=== PATIENT | male | born 1960 | race Caucasian/White ===

== ENCOUNTER 2017-10-17 13:50 | Observation (INO) | payer BC ==
[2017-10-17 16:57] LABS: Urine Blood 2+ (NEG); Urine Glucose NEGATIVE (NEG); Urine Protein 1+ (NEG); Urine pH 5.5 (5.0-7.0)
[2017-10-17 17:07] LABS: Urine Bacteria <20 /HPF (NONE SEEN); Urine RBC <5 /HPF (NONE SEEN)
[2017-10-17 17:08] LABS: Urine Culture Reflex Order NOT NEEDED
[2017-10-17] MEDS ORDERED: MORPHINE 4 MG/ML SYR ONE (17:18)
[2017-10-17] MEDS ORDERED: ONDANSETRON 4 MG/2 ML VIAL ONE (17:18)
[2017-10-17 17:29] LABS: Absolute Lymphocytes (CBC) 2.4 K/uL (0.7-4.9); Absolute Monocytes 1.2 K/uL (0.1-1.3); Absolute Neutrophil 12.9 K/uL (1.8-8.0); Basophils % 0.8 % (0-1.3); Eosinophils % 0.3 % (0-4.4); Hematocrit 44.9 % (39.6-49.0); Lymphocytes % 14.2 % (15.3-44.8); MCH 29.8 pg (27.0-35.0); MCV 87.6 fL (80-100); MPV 8.8 fL (7.6-11.3); Monocytes % 7.4 % (3.3-12.3); RBC Red Blood Cell Count 5.12 M/uL (4.33-5.43)
[2017-10-17 17:39] LABS: Albumin 3.9 g/dL (3.4-5.0); Bilirubin Direct 0.1 mg/dL (0-0.2); Bilirubin Total 0.9 mg/dL (0.2-1.0); Potassium 4.2 mmol/L (3.5-5.1); Protein, Total 8.1 g/dL (6.4-8.2)
--- NOTE | 2017-10-17 18:17 | RAD REPORT ---
EXAM DESCRIPTION: CT - Abdomen Pelvis W Contrast - 10/17/2017 6:05 pm CLINICAL HISTORY: Abdominal pain. Left lower quadrant pain with nausea for 3 days COMPARISON: None. TECHNIQUE: Computed axial tomography of the abdomen and pelvis was obtained. 100 cc Isovue-300 is ad ministered intravenously. Oral contrast was given. All CT scans are performed using dose optimization technique as appropriate and may include automated exposure control or mA/KV adjustment according to patient size. FINDINGS: A 24 millimeter low to intermediate density lesion is present within the left lobe of the liver. A sm aller low to intermediate density lesion is seen within the right lobe. Spleen, pancreas, adrenals and kidneys appear unremarkable. The appendix is thickened with ill-defined christopher appendiceal fluid . Free air is not seen. A discrete abscess is not noted. Small right inguinal hernia contains fat. Postsurgical changes of a left inguinal hernia repair are n oted IMPRESSION: Suppurative appendicitis Hepatic lesions are nonspecific. They do not represent simple cysts. Follow up ultrasound in 3 months is recommended
[2017-10-17] MEDS ORDERED: PIPER/TAZO/NS 3.375gm 3.375 GM/100 ML BAG ONE (18:31)
--- NOTE | 2017-10-17 18:31 | ER ---
Nurse's Notes [facility] Unit Name: Corky Musa Age: 57 yrs Sex: Male : 1960 Arrival Date: 10/17/2017 Time: 13:53 Bed 20 Private MD: None, None Diagnosis: Acute appendicitis Presentation: 10/17 14:10 Presenting complaint: Patient states: LLQ pain and tenderness and nausea x 3 days, hb periumbilical pain since yesterday. Transition of care: patient was not received from another setting of care. Onset of symptoms was October 15, 2017. Risk Assessment: Do you want to hurt yourself or someone else? Patient reports no desire to harm self or others. Initial Sepsis Screen: Does the patient meet any 2 criteria? No. Patient's initial sepsis screen is negative. Does the patient have a suspected source of infection? No. Patient's initial sepsis screen is negative. Care prior to arrival: None. 14:10 Method Of Arrival: Ambulatory hb 14:10 Acuity: NICKY 3 hb Triage Assessment: 16:29 General: Appears in no apparent distress. uncomfortable, Behavior is calm, cooperative, hj appropriate for age. Pain: Complains of pain in abdomen. GI: Reports lower abdominal pain, upper abdominal pain. Historical: - Allergies: 14:16 No Known Allergies; hb - Home Meds: 14:16 None [Active]; hb - PMHx: 14:16 None; hb - PSHx: 14:16 Hernia repair; hb - Immunization history:: Adult Immunizations up to date. - Social history:: Smoking status: Patient/guardian denies using tobacco. - Ebola Screening: : No symptoms or risks identified at this time. Screenin:29 Abuse screen: Denies threats or abuse. Denies injuries from another. Nutritional hj screening: No deficits noted. Tuberculosis screening: No symptoms or risk factors identified. Fall Risk None identified. Assessment: 16:29 GI: Bowel sounds present X 4 quads. Abd is soft and non tender Abd is soft. hj 16:55 Reassessment: awaiting provider;. hj 17:00 Reassessment: provider in room;. hj 17:30 Reassessment: Patient and/or family updated on plan of care and expected duration. Pain hj level reassessed. Patient is alert, oriented x 3, equal unlabored respirations, skin warm/dry/pink. awaiting CT:. 18:00 Reassessment: wheeled to CT:. hj 18:57 Reassessment: Patient and/or family updated on plan of care and expected duration. Pain hj level reassessed. Patient is alert, oriented x 3, equal unlabored respirations, skin warm/dry/pink. for surgery, consent signed, EKG done;. 19:09 Reassessment: Patient appears in no apparent distress at this time. No changes from jd3 previously documented assessment. Patient and/or family updated on plan of care and expected duration. Pain level reassessed. Patient is alert, oriented x 3, equal unlabored respirations, skin warm/dry/pink. 19:13 Reassessment: report given to OR nurse using SBAR method. pt reporting understanding on jd3 need for admission. Vital Signs: 14:14 BP 145 / 95; Pulse 63; Resp 15; Temp 99.8(TE); Pulse Ox 100% on R/A; Weight 80.29 kg; hb Height 5 ft. 11 in. (180.34 cm); Pain 8/10; 16:58 BP 127 / 80; Pulse 65; Resp 18; Pulse Ox 100% on R/A; hj 17:30 BP 130 / 85; Pulse 69; Resp 18; Pulse Ox 100% on R/A; hj 18:57 BP 133 / 85; Pulse 70; Resp 18; Pulse Ox 100% on R/A; hj 19:08 BP 121 / 75; Pulse 69; Resp 16 S; Pulse Ox 99% on R/A; jd3 14:14 Body Mass Index 24.69 (80.29 kg, 180.34 cm) ED Course: 13:53 Patient arrived in ED. sb2 13:53 None, None is Private Physician. sb2 14:14 Triage completed. hb 14:14 Arm band placed on right wrist. hb 16:22 Radiology exam delayed due to lab results not completed at this time. (BUN/Creatinine) vm2 IV insertion attempt and/or patient not having appropriate IV at this time. 16:29 Samuel Cummings, CHRIS is Primary Nurse. hj 16:29 Kenyon Chahal PA is PHCP. jr8 16:29 Gamaliel Hawkins MD is Attending Physician. jr8 16:30 Patient has correct armband on for positive identification. Placed in gown. Bed in low hj position. Call light in reach. Side rails up X 1. 17:13 Initial lab(s) drawn, by me, sent to lab. Inserted saline lock: 22 gauge in right hj antecubital area, using aseptic technique. Blood collected. 17:[address] 2 18:05 CT Abd/Pelvis - W/Contrast In Process Unspecified. EDMS 18:30 Samuel Steinberg MD is Hospitalizing Provider. jr8 18:35 X-ray completed. Portable x-ray completed in exam room. Patient tolerated procedure sw well. 18:36 XRAY Chest (1 view) In Process Unspecified. EDMS 18:48 EKG done, by ED staff, reviewed by Kenyon LOPEZ. 5 18:58 Pulse ox on. NIBP on. mh5 19:08 No provider procedures requiring assistance completed. Patient admitted, IV remains in jd3 place. Administered Medications: 17:16 Not Given (Patient Refused): Zofran 4 mg IVP once; over 2 minutes hj 17:16 Not Given (Patient Refused): morphine 4 mg IVP once hj 18:25 Drug: Zosyn 3.375 grams Route: IVPB; Infused Over: 60 mins; Site: right antecubital; 18:36 Follow up: IV Status: Completed infusion ss Outcome: 18:30 Decision to Hospitalize by Provider. jr8 19:14 Admitted to OR accompanied by nurse, via wheelchair, room OR, with chart. jd3 19:14 Condition: stable 19:14 Instructed on the need for admit, Demonstrated understanding of instructions. 19:15 Patient left the ED. jd3 Signatures: Dispatcher [employer] EDND Barbara Hoff, RN Kenyon Curiel PA PA jr8 Day Doran Samuel Cummings RN RN Miladis Tidwell RN RN hb Martinez, [facility] Malika Bowers 2 Luisito Asif RN RN jd3 Billeau, Sheri 2
--- NOTE | 2017-10-17 18:31 | EDPHYS ---
Physician Documentation [facility] Name: Corky Musa Age: 57 yrs Sex: Male : 1960 Arrival Date: 10/17/2017 Time: 13:53 Bed 20 Private MD: None, None ED Physician Gamaliel Hawkins HPI: 10/17 17:21 This 57 yrs old Male presents to ER via Ambulatory with complaints of jr8 Abdominal Pain. 17:21 The patient presents with abdominal pain in the lower abdomen. Onset: The jr8 symptoms/episode began/occurred acutely, yesterday. The symptoms do not radiate. Associated signs and symptoms: Pertinent positives: nausea. The symptoms are described as sharp. Modifying factors: The symptoms are alleviated by nothing, the symptoms are aggravated by nothing. Severity of pain: At its worst the pain was moderate in the emergency department the pain is unchanged. The patient has not experienced similar symptoms in the past. The patient has not recently seen a physician. Historical: - Allergies: 14:16 No Known Allergies; hb - Home Meds: 14:16 None [Active]; hb - PMHx: 14:16 None; hb - PSHx: 14:16 Hernia repair; hb - Immunization history:: Adult Immunizations up to date. - Social history:: Smoking status: Patient/guardian denies using tobacco. - Ebola Screening: : No symptoms or risks identified at this time. ROS: 17:21 Eyes: Negative for injury, pain, redness, and discharge, ENT: Negative for injury, jr8 pain, and discharge, Neck: Negative for injury, pain, and swelling, Cardiovascular: Negative for chest pain, palpitations, and edema, Respiratory: Negative for shortness of breath, cough, wheezing, and pleuritic chest pain, Back: Negative for injury and pain, MS/Extremity: Negative for injury and deformity, Skin: Negative for injury, rash, and discoloration, Neuro: Negative for headache, weakness, numbness, tingling, and seizure. 17:21 Abdomen/GI: Positive for abdominal pain, nausea, Negative for diarrhea, constipation, abdominal cramps, abdominal distension, anorexia, dysphagia, hematemesis, black/tarry stool, rectal pain, rectal bleeding, bowel incontinence, flatulence. Exam: 17:21 Eyes: Pupils equal round and reactive to light, extra-ocular motions intact. Lids and jr8 lashes normal. Conjunctiva and sclera are non-icteric and not injected. Cornea within normal limits. Periorbital areas with no swelling, redness, or edema. ENT: Nares patent. No nasal discharge, no septal abnormalities noted. Tympanic membranes are normal and external auditory canals are clear. Oropharynx with no redness, swelling, or masses, exudates, or evidence of obstruction, uvula midline. Mucous membranes moist. Neck: Trachea midline, no thyromegaly or masses palpated, and no cervical lymphadenopathy. Supple, full range of motion without nuchal rigidity, or vertebral point tenderness. No Meningismus. Cardiovascular: Regular rate and rhythm with a normal S1 and S2. No gallops, murmurs, or rubs. Normal PMI, no JVD. No pulse deficits. Respiratory: Lungs have equal breath sounds bilaterally, clear to auscultation and percussion. No rales, rhonchi or wheezes noted. No increased work of breathing, no retractions or nasal flaring. Back: No spinal tenderness. No costovertebral tenderness. Full range of motion. Skin: Warm, dry with normal turgor. Normal color with no rashes, no lesions, and no evidence of cellulitis. MS/ Extremity: Pulses equal, no cyanosis. Neurovascular intact. Full, normal range of motion. Neuro: Awake and alert, GCS 15, oriented to person, place, time, and situation. Cranial nerves II-XII grossly intact. Motor strength 5/5 in all extremities. Sensory grossly intact. Cerebellar exam normal. Normal gait. 17:21 Abdomen/GI: Inspection: abdomen appears normal, Bowel sounds: active, all quadrants, Palpation: soft, in all quadrants, mild abdominal tenderness, in the right lower quadrant and left lower quadrant, mass, is not appreciated, rebound tenderness, is not appreciated, voluntary guarding, is not appreciated, involuntary guarding, is not appreciated, no appreciated organomegaly, Indicators: McBurney's point is not tender, Jimenez's sign is negative, Rovsing's sign is negative, Liver: no appreciated palpable abnormalities, tenderness, is not appreciated. Vital Signs: 14:14 BP 145 / 95; Pulse 63; Resp 15; Temp 99.8(TE); Pulse Ox 100% on R/A; Weight 80.29 kg; hb Height 5 ft. 11 in. (180.34 cm); Pain 8/10; 16:58 BP 127 / 80; Pulse 65; Resp 18; Pulse Ox 100% on R/A; hj 17:30 BP 130 / 85; Pulse 69; Resp 18; Pulse Ox 100% on R/A; hj 18:57 BP 133 / 85; Pulse 70; Resp 18; Pulse Ox 100% on R/A; hj 19:08 BP 121 / 75; Pulse 69; Resp 16 S; Pulse Ox 99% on R/A; jd3 14:14 Body Mass Index 24.69 (80.29 kg, 180.34 cm) hb MDM: 16:29 Patient medically screened. jr8 18:29 Data reviewed: vital signs, nurses notes, lab test result(s), radiologic studies, CT jr8 scan, and as a result, I will admit patient. Data interpreted: Pulse oximetry: on room air is 100 %. Interpretation: normal. Counseling: I had a detailed discussion with the patient and/or guardian regarding: the historical points, exam findings, and any diagnostic results supporting the discharge/admit diagnosis, lab results, radiology results, the need for further work-up and treatment in the hospital. Physician consultation: Samuel Steinberg MD was called at 18:29, was contacted at 18:29, regarding admission, to the operating room, consult, patient's condition, and will see patient. 10/17 14:50 Order name: Urine Microscopic Only; Complete Time: 17:15 pending sale to [facility] 10/17 16:40 Order name: Urine Dipstick--Ancillary (enter results); Complete Time: 17:01 10/17 17:02 Order name: Basic Metabolic Panel; Complete Time: 17:42 [facility] 10/17 17:02 Order name: CBC with Diff; Complete Time: 17:33 [facility] 10/17 17:02 Order name: Creatinine for Radiology; Complete Time: 17:36 [facility] 10/17 17:02 Order name: Hepatic Function; Complete Time: 17:42 [facility] 10/17 14:50 Order name: Urine Dipstick-Ancillary (obtain specimen); Complete Time: 16:39 pending sale to [facility] 10/17 14:50 Order name: CT Abd/Pelvis - W/Contrast; Complete Time: 18:22 pending sale to [facility] 10/17 17:02 Order name: Lipase; Complete Time: 17:42 10/17 18:23 Order name: EKG; Complete Time: 18:23 10/17 18:24 Order name: XRAY Chest (1 view); Complete Time: 19:13 10/17 14:50 Order name: NPO; Complete Time: 16:31 snw 10/17 17:02 Order name: IV Saline Lock; Complete Time: 17:13 10/17 17:02 Order name: Labs collected and sent; Complete Time: 17:13 10/17 18:23 Order name: EKG - Nurse/Tech; Complete Time: 18:36 10/17 18:23 Order name: NPO; Complete Time: 18:25 Administered Medications: 17:16 Not Given (Patient Refused): Zofran 4 mg IVP once; over 2 minutes hj 17:16 Not Given (Patient Refused): morphine 4 mg IVP once hj 18:25 Drug: Zosyn 3.375 grams Route: IVPB; Infused Over: 60 mins; Site: right antecubital; ss 18:36 Follow up: IV Status: Completed infusion ss Disposition: 10/18 09:37 Co-signature as Attending Physician, Gamaliel Hawkins MD I agree with the assessment and milka plan of care. Disposition: 10/17/17 18:30 Hospitalization ordered by Samuel Steinberg for Observation. Preliminary diagnosis is Acute appendicitis. - Bed requested for Telemetry/MedSurg (observation). - Status is Observation. jd3 - Condition is Stable. - Problem is new. - Symptoms are unchanged. UTI on Admission? No Signatures: Dispatcher [employer] Esther Mendez RN Gamaliel Fleming MD MD cha Therrien, Shelly, WATCH ADJUSTER-C WATCH ADJUSTER-Csnw Barbara Hoff RN RN ss Kenyon Chahal PA PA jr8 Miladis Tidwell RN RN hb Davies, Jonathon, RN RN jSamuel Bruno RN hj Corrections: (The following items were deleted from the chart) 10/17 19:02 18:30 Hospitalization Ordered by Samuel Steinberg MD for Observation. Preliminary dw diagnosis is Acute appendicitis. Bed requested for Operating Room. Status is Observation. Condition is Stable. Problem is new. Symptoms are unchanged. UTI on Admission? No. jr8 19:15 19:02 10/17/2017 18:30 Hospitalization Ordered by Samuel Steinberg MD for Observation. jd3 Preliminary diagnosis is Acute appendicitis. Bed requested for Telemetry/MedSurg (observation). Status is Observation. Condition is Stable. Problem is new. Symptoms are unchanged. UTI on Admission? No. dw
--- NOTE | 2017-10-17 19:09 | RAD REPORT ---
EXAM DESCRIPTION: [place] Single View10/17/2017 6:36 pm CLINICAL HISTORY: Abdominal pain. Preop for appendectomy COMPARISON: 2015 FINDINGS: The lungs appear clear of acute infiltrate. The heart is normal size IMPRESSION: No acute abnormalities displayed
[2017-10-17] MEDS ORDERED: Ringers Lactate 1,000 ML IV ONE (19:23)
[2017-10-17] MEDS ORDERED: SUCCINYLCHOLINE 20 MG/ML (10 ML) IV ONE (19:33)
[2017-10-17] MEDS ORDERED: MIDAZOLAM HCL 2 MG/2 ML INJ ONE (19:42)
[2017-10-17] MEDS ORDERED: PROPOFOL 200 MG/20 ML VIAL IV ONE (19:42)
[2017-10-17] MEDS ORDERED: FENTANYL CITR 250 MCG/5 ML ONE (19:42)
[2017-10-17] MEDS ORDERED: ROCURONIUM 50 MG/5 ML VIAL IV ONE (20:00)
[2017-10-17] MEDS ORDERED: DEXAMETHASONE 10 MG/ML VIAL ONE (20:02)
[2017-10-17] MEDS ORDERED: ONDANSETRON HCL 40 MG/20 ML VIAL ONE (20:02)
[2017-10-17] MEDS ORDERED: GLYCOPYRROLATE 0.2 MG/ML SYR ONE (20:20)
[2017-10-17] MEDS ORDERED: NEOSTIGMINE 1 MG/ML -5 ML SYRINGE ONE (20:20)
--- NOTE | 2017-10-17 20:30 | P.BOP ---
Preoperative diagnosis: suppurative appendix Postoperative diagnosis: same Primary procedure: Laparoscopic appendectomy Estimated blood loss: <10cc Specimen: mayi Findings: suppurative appendix with peritonitis Anesthesia: General Transferred to: Recovery Room Condition: Good
[2017-10-17] MEDS ORDERED: ONDANSETRON 4 MG/2 ML VIAL IV PRN (20:57)
[2017-10-17] MEDS ORDERED: HYDROCODONE/APAP 7.5/325 MG TAB PO PRN (20:57)
[2017-10-17] MEDS: NA CHLORIDE 0.9% 1,000 ML IV SCH (21:20)
[2017-10-17] MEDS: METRONIDAZOLE 500mg IVPB 500 MG/100 ML BAG IV SCH (23:25)
[2017-10-18] MEDS ORDERED: CEFOXITIN SODIUM 2 GM/VIAL ONE (00:11)
[2017-10-18] MEDS ORDERED: NA CHLORIDE 0.9% 200 ML ONE (00:14)
--- NOTE | 2017-10-18 03:35 | OP ---
Date of Procedure: 10/17/2017 Surgeon: Samuel Steinberg MD Accounts Clerk: None. Preoperative Diagnosis: Acute suppurative appendicitis with peritonitis. Postoperative Diagnosis: Acute suppurative appendicitis with peritonitis. Procedure: Laparoscopic appendectomy. Estimated Blood Loss: Less than 10 cc. Specimen: Appendix. Findings: Acute suppurative appendicitis with periappendiceal inflammation and colitis and peritonit is. Indications For Procedure: This is the case of a 57-year-old patient with several days history of ri ght lower quadrant pain and discovered to have acute suppurative appendicitis. The patient was fully explained the need for emergent laparoscopic, possible open appendectomy with benefits, alternatives , and risks including, but not limited to infection, bleeding, damage to adjacent structures, anesthe binh complication, OR, even . He also understands this may not relieve any symptoms. He might n eed more than one surgical intervention. He understood. Signed a consent. Description Of Procedure: The patient was brought to the operating room and placed in the supine pos ition. Anesthesia was done without complication. Abdominal area was prepped and draped in usual fay rile fashion. Marcaine 0.5% injected for local anesthetic, followed by sharp incision of the skin in the infraumbilical region. Incision was carried down to fascia, which was opened under direct visio n. Peritoneum was encountered, opened under direct vision. Vicryl #1 placed inside the fascia. Has son trocar was carefully introduced. Pneumoperitoneum was obtained. I placed 2 more trocars, 5 mm e ach one of them in the suprapubic and left lower quadrant under direct visualization. At that moment , I proceeded to identify the area of the right lower quadrant. We noticed acute suppurative appendi x with periappendiceal inflammation, colitis, peritonitis. Carefully the base of the appendix was id entified, seems to be spared from the inflammation, so we transected that area with Endo-JINA 45 mm 3. 5, after creating a window in the base of the appendix. The mesoappendix was transected with Endo-GI A 45 mm 2.5. Appendix removed from abdominal cavity using EndoCatch through the umbilical incision. The area was inspected once again. No bleeding. No bowel leak. The area was profusely irrigated u ntil clean. At that moment, I proceeded to inspect the area once again. No bowel leak. No bleeding . At that moment, I proceeded to remove the trocars under direct vision. Deflated pneumoperitoneum. Closed the fascia with #1 Vicryl. Irrigated subcutaneous tissue, closed that with 3-0 chromic and skin with jimenez. Sponge count and instrument counts were correct. The patient tolerated the proce dure well. The patient was sent to Recovery in stable condition. NATALIIA/JAMES Voice ID: [id number] Report ID: [id number]
[2017-10-18] MEDS: METRONIDAZOLE 500mg IVPB 500 MG/100 ML BAG IV SCH ×2 (04:57→12:22)
[2017-10-18] MEDS: CEFOXITIN 1 GM in NA CHLORIDE 0.9% 100 ML IVPB SCH ×3 (04:58)
[2017-10-18] MEDS: NA CHLORIDE 0.9% 1,000 ML IV SCH (04:58)
[2017-10-18 05:19] LABS: Absolute Monocytes 0.2 K/uL (0.1-1.3); Absolute Neutrophil 12.3 K/uL (1.8-8.0); Basophils % 0.1 % (0-1.3); Hematocrit 39.1 % (39.6-49.0); Lymphocytes % 7.3 % (15.3-44.8); MCH 30.4 pg (27.0-35.0); MCV 86.6 fL (80-100); MPV 9.1 fL (7.6-11.3); Monocytes % 1.8 % (3.3-12.3); RBC Red Blood Cell Count 4.51 M/uL (4.33-5.43)
[2017-10-18 05:38] LABS: Potassium 4.2 mmol/L (3.5-5.1)
--- NOTE | 2017-10-18 05:47 | HP ---
Date of Admission: 10/17/2017 Diagnoses: 1.Acute abdominal pain. 2.Peritonitis. History Of Present Illness: This is the case of a 57-year-old patient who come to us with 3 days his tory of periumbilical and right lower quadrant tenderness, associated with nausea and vomiting. He w as trying to deal with this himself but he could not wait anymore. Today, when he came to the ER, di agnosed with acute appendicitis with suppurative appendicitis. Surgical consultation was immediately called. The patient states he has been having some abdominal pain for about 3 days already. He maile es any dysuria, hematuria, hematochezia, or melena. He denies any recent traveling out of the [place]r [place]. He denies any family member sick at home. The patient advised on importance of colonoscopy altho ugh he has not done it yet. Social History: The patient does smoke. He does not drink alcohol. Past Medical History: None. Medications: None. Allergies: NONE. Family History: Noncontributory. 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 Respiratory: He denies any shortness of breath, any chest pain. Gastrointestinal: As above. Genitourinary: He denies any dysuria or hematuria. Past Surgical History: Hernia repair. Physical Examination: General: The patient is awake and alert. HEENT: Pupils are equal and reactive, anicteric. Neck: Supple. Chest: Clear. Abdomen: Right lower quadrant tenderness with guarding and peritonitis present with Psoas signs and Rovsing signs positive. Rectal/Genitalia: Fair. Extremities: Good capillary refill. Good peripheral pulses. Laboratory Data: Blood work shows a WBC count of 16.8 with hemoglobin of 15.3. Bicarb is 30. Potas sium is 4.2. UA; blood 2 positive, nitrite negative. Imaging: CAT scan of abdomen and pelvis interpreted by Dr. Álvarez as suppurative appendicitis with the appendix thickened, periappendiceal fluid, cannot rule out abscess. The patient has small right inguinal hernia. Assessment: This is a 57-year-old patient with suppurative appendicitis, peritonitis present. The p atient need emergent laparoscopic, possible open appendectomy with benefits, alternatives, risks incl uding but not limited to infection, bleeding, damage to adjacent structures, anesthesia complication, abscess, [place], even . He also understands this may not relieve the symptoms. He may need more t mon[place] one surgical intervention. There is periappendiceal fluid with peritonitis, may have an abscess already, so he was advised on the importance of even if he goes home to finish his antibiotics. The patient also had a small right inguinal hernia that he should fix electively and he was fully explain ed. He also was fully explained to check up with his urologist about his blood in urine. The benefi ts, alternatives, and risks fully explained once again on him and he decided to go for surgery and we called emergently OR. NATALIIA/JAMES Voice ID: [id number]
[2017-10-18 07:44] LABS: Blood Morphology Comment NOT SEEN (NOT SEEN); Platelet Estimate ADEQ; Urine White Blood Cell Casts OK
[2017-10-18] MEDS ORDERED: CEFOXITIN/SWI 1gm 1 GM/10 ML SYR IV SCH (12:00)
--- NOTE | 2017-10-18 12:14 | EKG ---
Test Date: 2017-10-17 Test Time: 18:27:38 Wallpaper Cleaner: JUAN JOSE MEASUREMENT RESULTS: Intervals: Rate: 69 SD: 144 QRSD: 86 QT: 392 QTc: 420 Opdyke: P: 68 SD: 144 QRS: 55 T: 60 INTERPRETIVE STATEMENTS: Normal sinus rhythm Normal ECG Compared to ECG 09/01/2015 17:06:25 Sinus bradycardia no longer present Left ventricular hypertrophy no longer present Electronically Signed On 10-18-17 12:11:57 CDT by Piter Whittaker
== END 2017-10-18 15:14 | disposition home or self-care (01) ==
LOC: ER 13:50 → ERHOLD 18:53 → 2ND 19:05 → OBSVTOIN 10-18 11:05 → INTOOBSV 10-18 11:05
PROVIDERS: ADMIT Surgery; ATTEND Surgery
PROC: 0DTJ4ZZ Resection of Appendix, Percutaneous Endoscopic Approach (ICD-10-PCS; principal; 2017-10-17 19:00)
DX: K35.3 Acute appendicitis with localized peritonitis (principal); K52.9 Noninfective gastroenteritis and colitis, unspecified; K40.90 Unilateral inguinal hernia, without obstruction or gangrene, not specified as recurrent
CPT/HCPCS: 36415; 71045; 74177; 80048; 80076; 81003; 81015; 83690; 85025; 88304; 93005; 96374; 99285; G0378; J0330; J0694; J1100; J2250; J2405; J2543; J2710; J7030; Q9967